=== PATIENT | female | born 1985 ===

== ENCOUNTER 2017-03-14 07:31 | Day surgery (SDC) | payer OTHER ==
[2017-03-14] MEDS ORDERED: DIPHENHYDRAMINE 50 MG in SODIUM CHLORIDE 50 ML IVPB ONE ×2 (12:00→13:20)
[2017-03-14] MEDS ORDERED: ACETAMINOPHEN 325 MG TABLET (FP) PO ONE ×2 (12:00→13:00)
[2017-03-14] MEDS ORDERED: FERRIC CARBOXYMALTOSE 750 MG in SODIUM CHLORIDE 250 ML IVPB ONE (13:30)
[2017-03-14 15:05] VITALS: TEMP 98.4
[2017-03-14 16:45] VITALS: BP 93/53; PULSE 73
== END 2017-03-14 16:30 | disposition home or self-care (01) ==
LOC: JONCNONCHE 07:31 → J7W 12:40 → JONCNONCHE 16:30
PROVIDERS: ATTEND Internal Medicine Hematology & Oncology
PROC: 3E033GC Introduction of Other Therapeutic Substance into Peripheral Vein, Percutaneous Approach (ICD-10-PCS; principal; 2017-03-14)
DX: D50.9 Iron deficiency anemia, unspecified (principal); K90.9 Intestinal malabsorption, unspecified
CPT/HCPCS: 96365; 96375

== ENCOUNTER 2017-03-23 07:36 | Day surgery (SDC) | payer OTHER ==
[2017-03-23] MEDS ORDERED: ACETAMINOPHEN 325 MG TABLET (FP) PO ONE (10:00)
[2017-03-23] MEDS ORDERED: DIPHENHYDRAMINE 50 MG in SODIUM CHLORIDE 100 ML IVPB ONE (10:00)
[2017-03-23] MEDS ORDERED: FERRIC CARBOXYMALTOSE 750 MG in SODIUM CHLORIDE 250 ML IVPB ONE (10:15)
[2017-03-23] MEDS ORDERED: IBUPROFEN 400 MG TABLET (FP) PO ONE (13:42)
[2017-03-23 14:12] VITALS: TEMP 97.9
[2017-03-23 17:03] VITALS: BP 95/66; PULSE 80
== END 2017-03-23 15:30 | disposition home or self-care (01) ==
LOC: JONCNONCHE 07:36 → J7W 11:41 → JONCNONCHE 15:30
PROVIDERS: ATTEND Internal Medicine Hematology & Oncology
PROC: 3E033GC Introduction of Other Therapeutic Substance into Peripheral Vein, Percutaneous Approach (ICD-10-PCS; principal; 2017-03-23)
DX: D50.9 Iron deficiency anemia, unspecified (principal); K90.9 Intestinal malabsorption, unspecified
CPT/HCPCS: 96365